=== PATIENT | male | born 2000 | race Two or more races ===

== ENCOUNTER 2023-09-20 09:09 | Emergency (ER) | payer SELFPAY ==
[2023-09-20 09:36] VITALS: BP 121/97; O2SAT 100
[2023-09-20] MEDS ORDERED: KETOROLAC 30 MG/ML VIAL IM STA (09:37)
--- NOTE | 2023-09-20 09:39 | ED Physician Documentation ---
PD HPI UPPER EXT INJURY - Stated complaint Stated Complaint: SLIPPED ON ICE - Chief complaint Chief Complaint: Trauma Ext - History obtained from History obtained from: Patient - Additonal information Additional information: 23-year-old male presents by private vehicle for right wrist injury and swelling. Patient slipped on ice and fell on his outstretched arm. Reports pain and swelling to his right wrist. No medications taken prior to arrival. Denies numbness or weakness in his extremity Review of Systems Constitutional: denies: Fever, Chills Musculoskeletal: reports: Extremity pain, Joint pain, Extremity swelling PD PAST MEDICAL HISTORY - Past Medical History Past Medical History: No - Past Surgical History Past Surgical History: No - Present Medications Home Medications: Ambulatory Orders Medication Instructions Recorded Confirmed No Known Home Medications 09/20/23 09/20/23 - Allergies Allergies/Adverse Reactions: Allergies Allergy/AdvReac Type Severity Reaction Status Date / Time Penicillins Allergy Hives Verified 09/20/23 09:30 - Social History Does the pt smoke?: No Does the pt drink ETOH?: No Does the pt have substance abuse?: No - Immunizations Immunizations are current?: Yes - POLST Patient has POLST: No PD ED PE NORMAL - Vitals Vital signs reviewed: Yes - General General: Alert and oriented X 3, No acute distress - Cardiac Cardiac: RRR, Strong equal pulses - Respiratory Respiratory: No respiratory distress - Derm Derm: Normal color, Warm and dry, No rash - Extremities Extremities: Other (Swelling R wrist, TTP base of hand. Full ROM fingers, radial pusles intact) - Neuro Neuro: Alert and oriented X 3, pattern chart writer 2-12 intact, No motor deficit, Normal speech Results - Vitals Vitals: Vital Signs - 24 hr 09/20/23 09:25 Temperature 36.4 C L Heart Rate 73 Respiratory 20 Rate Blood Pressure 121/97 H O2 Saturation 100 Oxygen O2 Source Room air PD Medical Decision Making - ED course Complexity details: reviewed results, re-evaluated patient, considered differential, d/w patient ED course: Wrist pain after FOOSH. XR negative for fracture. RICE advised. Placed in velcro splint for comfort. Departure - Departure Disposition: Home, Self Care Clinical Impression: Wrist sprain Qualifiers: Encounter type: initial encounter Laterality: right Qualified Code(s): S63.501A - Unspecified sprain of right wrist, initial encounter Condition: Stable Instructions: ED Sprain Wrist Print Language: Icelandic Forms: PCP List Discharge Date/Time: 09/20/23 10:44
--- NOTE | 2023-09-20 10:28 | XRAY Report ---
PROCEDURE: Wrist 3+V RT INDICATIONS: trauma TECHNIQUE: 4 views of the wrist were acquired. COMPARISON: None. FINDINGS: Bones: No fractures or dislocations. No suspicious bony lesions. Soft tissues: No suspicious soft tissue calcifications or masses. IMPRESSION: No acute bony abnormality. Reviewed by: Andrei Chase MD on 09/20/2023 9:[address] [facility] Approved by: Andrei Chase MD on 09/20/2023 9:[address] [facility] Station ID: [id number]
== END 2023-09-20 10:44 | disposition home or self-care (01) ==
LOC: ED 09:09
DX: S63.501A Unspecified sprain of right wrist, initial encounter (principal); W00.0XXA Fall on same level due to ice and snow, initial encounter
CPT/HCPCS: 96372; 99283